=== PATIENT | male | born 1995 | race Caucasian/White ===

== ENCOUNTER 2021-01-04 07:46 | Outpatient (CLI) | payer OTHER ==
--- NOTE | 2021-01-04 10:37 | MRI Report ---
PROCEDURE: Wrist LT W/O INDICATIONS: INSTABILITY IN LEFT WRIST TECHNIQUE: Noncontrast coronal proton density fast spin echo and T2 fast spin echo with fat saturation; coronal 3-D gradient echo, axial T1 spin echo and T2 fast spin echo with fat saturation, sagittal T1 spin ech o through the wrist. COMPARISON: None. FINDINGS: Image quality: Excellent. Bones and cartilage: The carpal bones are normally aligned. No bone marrow contusions or fractures. No evidence for avascular necrosis. Overlying cartilage surfaces appear normal. Carpal ligaments: The scapholunate and lunotriquetral ligaments appear intact. In the absence of in tra-articular contrast, the extrinsic carpal ligaments are not well identified. On sagittal images, the pisohamate ligament appears intact. Triangular fibrocartilage complex: Signal abnormality within central portion of regular fibrocartilag e is seen concerning for focal TFCC tear. The adjacent meniscal homolog appears normal in the absence of intra-articular contrast. The extensor carpi ulnaris tendon is normal in location and morphology . Tendons and soft tissues: The carpal tunnel structures appear normal, including the median nerve. T he ulnar nerve appears normal within Guyon?s canal. All six extensor tendon compartments demonstrate normal morphology, without pathologic tendon sheath fluid. No soft tissue ganglion cysts. IMPRESSION: 1. No marrow edema. No fracture or dislocation. No suspicious intraosseous lesion or osteonecrosis. 2. Finding is concerning for focal TFCC tear near its central portion. 3. Intrinsic and extrinsic wrist ligaments are grossly intact. 4. Extensor and flexor tendons are intact. Reviewed by: Yehuda Youngblood MD on 01/04/2021 10:35 AM PDT Approved by: Yehuda Youngblood MD on 01/04/2021 10:35 AM PDT Station ID: [id number]
== END 2021-01-04 07:47 | disposition home or self-care (01) ==
LOC: DI 07:46
PROVIDERS: ATTEND Nurse Practitioner Family
DX: M25.332 Other instability, left wrist (principal)

== ENCOUNTER 2021-05-11 10:16 | Outpatient (CLI) | payer OTHER | END 2021-05-11 10:17 | disposition home or self-care (01) | LOC: DI 10:16 | PROVIDERS: ATTEND Physician Assistant | DX: R07.9 Chest pain, unspecified (principal) | CPT/HCPCS: 93306 ==

== ENCOUNTER 2021-05-17 12:38 | Outpatient (CLI) | payer OTHER ==
[2021-05-17] MEDS ORDERED: GADOBUTROL 7.5 MMOL/7.5 ML VIAL ONE (13:08)
== END 2021-05-17 12:39 | disposition home or self-care (01) ==
LOC: DI 12:38
PROVIDERS: ATTEND Physician Assistant
DX: Z53.9 Procedure and treatment not carried out, unspecified reason (principal)

== ENCOUNTER 2021-06-06 07:39 | Outpatient (CLI) | payer OTHER ==
--- NOTE | 2021-06-06 08:46 | CARDIAC PROCEDURE NOTE ---
Stress Test Report Service Date: 06/06/21 Service Time: 08:00 Ordering Provider: Melo Rodriguez MD Indication for Test: Assess intermittent chest pain, that began after first Covid-19 vaccine. 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 Discomfort typically occurs with/following physical exertion, can be associated with early exertional fatigue and has limited the duration of his regular exercise routine, consisting primarily of running, though he does continue regular workouts. He also awakens in the morning with chest discomfort at times, which is lessened by getting out of bed and moving around. He reports some difficulty in filling his lungs with a full breath and a feeling of congestion in association with the pain, but he denies associated marked diaphoresis, palpitations or lightheadedness. He sometimes uses NSAIDs for the discomfort but finds the relief conferred is rather limited. He was starting to feel some improvement by mid to late April, but following his second vaccine in early May he was "set back" and feels he is still moderately affected by the above symptoms. He was already evaluated with resting diagnostic echocardiogram in early May, with findings normal in all aspects. Cardiac Risk Factors: No known history of hypertension, diabetes, hyperlipidemia or ever cigarette smoking. Family history unknown as patient was adopted. Type of Stress Test: Exercise Treadmill Test (ETT) Procedure: -Exercise Treadmill Test- After signing informed consent, the patient performed treadmill exercise using a Morris protocol. The patient exercised for 10 minutes 44 seconds and achieved a peak heart rate of 182 (92 percent predicted maximum heart rate for age), and an estimated workload of 13 METS. The test was terminated due to fatigue/shortness of breath, following his achieving target HR. Resting heart rate: 78 Peak heart rate: 182 Normal response to exercise. Resting BP: 121/85 Peak BP: 143/64 (during exercise) with subsequent increase to 166/91 after 3 minutes of recovery, then subsequent return to near baseline (130/90). Nonspecifically abnormal BP response to exercise. Rhythm during exercise: Sinus rhythm throughout. Symptoms: He reported mild occurrence of his "typical" chest discomfort in stages 3 and 4, that resolved early in recovery. EKG at rest showed normal sinus rhythm, with rSr' pattern in V1, with <0.[address] elevation in anterolateral leads, most likely due to early repolarization. EKG at peak stress showed J-point depression with upsloping ST segments, NOT meeting diagnostic criteria for ischemia. In Recovery heart rate decline was slower than average, with persistent elevation (107-108) at 5 minutes; BP course as described above. No imaging was ordered with this stress test. IDar MD, was present throughout this treadmill stress study and supervised it in its entirety. Summary: 1) Exercise tolerance moderately reduced for age, as evidenced by MARTÍNEZ of 27.4%. 2) Normal resting EKG. 3) Adequate level of exercise was achieved on this treadmill stress test. 4) BP increase with exercise was somewhat less than average, with subsequent brief elevation in recovery and then return to near baseline level. 5) No ischemic changes by EKG criteria were seen at peak stress. 6) No imaging was ordered with this test. CONCLUSIONS: 1) Ongoing impairment of exercise capacity. 2) Patient experienced his typical chest discomfort during the study (with rapid resolution in early recovery) that was NOT associated with ischemic ST depression. 3) Somewhat atypical BP response to exercise/recovery as detailed above; significance unclear. 4) In combination with recent normal resting echocardiogram findings are overall low risk, but likely are due to persistent thoracic inflammatory reaction following serial Covid-19 vaccinations.
== END 2021-06-06 07:40 | disposition home or self-care (01) ==
LOC: DI 07:39
PROVIDERS: ATTEND Physician Assistant
DX: R07.9 Chest pain, unspecified (principal)
CPT/HCPCS: 93016; 93017; 93018